=== PATIENT | male | born 1970 | race Caucasian/White ===

== ENCOUNTER 2017-07-30 07:03 | Emergency (ER) | payer OTHER ==
[~2017-07-30] VITALS: Ht 172.7 cm; Wt 122.5 kg
== END 2017-07-30 07:55 | disposition home or self-care (01) ==
LOC: ER 07:03
DX: S63.601A Unspecified sprain of right thumb, initial encounter (principal); V89.2XXA Person injured in unspecified motor-vehicle accident, traffic, initial encounter; Y93.89 Activity, other specified; Y92.89 Other specified places as the place of occurrence of the external cause; Y99.8 Other external cause status